=== PATIENT | male | born 1965 ===

== ENCOUNTER → 2023-06-10 12:44 | Outpatient (CLI) | payer OTHER ==
[2023-06-10 14:17] LABS: CREATININE SERUM 0.88 mg/dL (0.70-1.30)
== END | disposition home or self-care (01) ==
LOC: LAB 12:44
DX: I12.9 Hypertensive chronic kidney disease with stage 1 through stage 4 chronic kidney disease, or unspecified chronic kidney disease (principal); N18.31 Chronic kidney disease, stage 3a; Z88.0 Allergy status to penicillin; Z88.6 Allergy status to analgesic agent

== ENCOUNTER 2023-06-11 07:11 | Outpatient (CLI) | payer OTHER ==
[2023-06-11 08:18] LABS: HEMATOCRIT 39.7 % (39.0-48.0); HEMOGLOBIN 13.6 g/dL (13-16.00); MEAN CELL VOLUME 91.8 fL (80.0-100.00); MEAN CORPUSCULAR HEMOGLOBIN 31.5 pg (27.00-32.0); MEAN CORPUSCULAR HGB CONC 34.4 g/dl (32.0-36.0); PLATELET COUNT 203 K/uL (150-450); RED BLOOD COUNT 4.33 M/uL (4.00-6.00); RED CELL DISTRIBUTION WIDTH 14.3 % (11.5-14.5)
[2023-06-11 08:53] LABS: ALBUMIN 3.8 gm/dL (3.4-5.0); BILIRUBIN TOTAL 0.53 mg/dL (0.3-1.2); CALCIUM 9.3 mg/dL (8.5-10.1); CREATININE SERUM 0.85 mg/dL (0.70-1.30); GFR 92.9; GLOBULINA 3.6 G/DL (2.4-3.5); POTASSIUM 4.38 mEq/L (3.5-5.1); T4 FREE 0.99 NG/ML (0.76-1.46); TOTAL PROTEIN 7.4 gm/dL (6.4-8.2); TSH 1.26 uIU/mL (0.358-3.74)
[2023-06-11 08:55] LABS: C-REACTIVE PROTEIN 0.88 MG/DL (0.00-0.29)
[2023-06-11 09:54] LABS: ERYTHROCYTE SEDIMENTATION RATE 9 mm/hr
== END 2023-06-11 07:15 | disposition home or self-care (01) ==
LOC: LAB 07:11
DX: D64.9 Anemia, unspecified (principal); N18.31 Chronic kidney disease, stage 3a; I12.9 Hypertensive chronic kidney disease with stage 1 through stage 4 chronic kidney disease, or unspecified chronic kidney disease; E03.9 Hypothyroidism, unspecified; M06.4 Inflammatory polyarthropathy

== ENCOUNTER 2023-06-13 07:54 | Outpatient (CLI) | payer OTHER | END 2023-06-13 08:09 | disposition home or self-care (01) | LOC: TOM 07:54 | DX: R22.1 Localized swelling, mass and lump, neck (principal) ==